=== PATIENT | female | born 1955 | race Caucasian/White ===

== ENCOUNTER 2019-07-04 12:32 | Inpatient (IN) | payer MEDICAID, MEDICARE ==
[~2019-07-04] VITALS: Ht 167.6 cm; Wt 50.1 kg
[2019-07-04 13:54] LABS: BASOPHILS # (AUTO) 0.01 x10^3/uL (0-0.1); BASOPHILS % (AUTO) 0 % (0-1); EOSINOPHILS # (AUTO) 0.03 x10^3/uL (0-0.4); EOSINOPHILS % (AUTO) 0 % (1-7); LYMPHOCYTES # (AUTO) 1.65 x10^3/uL (1-3.4); LYMPHOCYTES % (AUTO) 13 % (22-44); MD NO; MEAN CORPUSCULAR HEMOGLOBIN 32.4 pg (27.0-34.8); MEAN CORPUSCULAR HGB CONC 33.7 g/dL (32.4-35.8); MEAN CORPUSCULAR VOLUME 96.2 fL (80-100); MEAN PLATELET VOLUME 7.7 fL (7.4-10.4); MONOCYTES # (AUTO) 0.63 x10^3/uL (0.2-0.8); MONOCYTES % (AUTO) 5 % (2-9); NEUTROPHILS # (AUTO) 10.29 x10^3/uL (1.8-6.8); NEUTROPHILS % (AUTO) 82 % (42-75); PLATELET COUNT 247 x10^3/uL (130-400); RED BLOOD COUNT 5.29 x10^6/uL (3.82-5.3); RED CELL DISTRIBUTION WIDTH 13.4 % (9.6-15.2)
[2019-07-04 14:02] LABS: ALBUMIN 3.2 g/dL (3.4-5.0); ANION GAP 8 mmol/L (5-15); CALCIUM 8.2 mg/dL (8.5-10.1); CHLORIDE 103 mmol/L (98-107)
--- NOTE | 2019-07-04 14:02 | NUR ---
PATIENT CLEANED FROM BM, LABS COLLECTED. PATIWNT RESTING IN BED.
[2019-07-04 14:10] LABS: ALANINE AMINOTRANSFERASE 34 U/L (12-78); ALKALINE PHOSPHATASE 58 U/L (45-117); BILIRUBIN,TOTAL 1.2 mg/dL (0.2-1.0); TOTAL PROTEIN 7.2 g/dL (6.4-8.2)
--- NOTE | 2019-07-04 14:39 | NUR ---
BREAK RN: LAB CALLED WITH ELEVATED TROPONIN 1.21, NOTIFIED. PT DENIES CHEST PAIN AND STATES "I JUST HAVE HAY FEVER"
[2019-07-04 14:46] LABS: CULTURE INDICATED? YES; MICROSCOPIC INDICATED
[2019-07-04 14:53] LABS: AMPHETAMINE SCREEN, URINE Negative (Negative); BARBITURATE SCREEN, URINE Negative (Negative); BENZODIAZEPINE SCREEN, URINE Negative (Negative); CANNABINOID SCREEN, URINE Positive (Negative); COCAINE SCREEN, URINE Negative (Negative); METHADONE SCREEN, URINE Negative (Negative); OPIATE SCREEN, URINE Negative (Negative)
--- NOTE | 2019-07-04 15:30 | NUR ---
Patient is resting comfortably in bed. Vital Signs within normal limits.
[2019-07-04] MEDS ORDERED: ASPIRIN 325 MG TABLET PO ONE (16:30)
[2019-07-04] MEDS ORDERED: ASPIRIN 81 MG TABLET CHEW ONE (16:41)
--- NOTE | 2019-07-04 16:45 | NUR ---
Patient is resting comfortably in bed. Vital Signs within normal limits.
[2019-07-04] MEDS ORDERED: ASPIRIN 325 MG TABLET ONE (16:46)
--- NOTE | 2019-07-04 16:55 | NUR ---
REPORT CALLED TO OBDULIO ABRAMS. NO QUESTIONS AT THIS TIME.
[2019-07-04 17:52] VITALS: BP 111/75
[2019-07-04] MEDS ORDERED: PLEASE ENTER ALLERGIES MC SCH (18:00)
[2019-07-04] MEDS ORDERED: LABETALOL 5MG/ML, 20ML IVPush PRN (18:00)
[2019-07-04] MEDS ORDERED: ONDANSETRON 2MG/ML, 2ML IVPush PRN (18:00)
[2019-07-04] MEDS ORDERED: DEXTROSE 4 GM TAB.CHEW PO PRN (18:00)
[2019-07-04] MEDS ORDERED: LORazepam 2 MG/ML, 1ML IVPush PRN (18:00)
[2019-07-04] MEDS ORDERED: ENALAPRILAT 1.25 MG/ML, 2ML IVPush PRN (18:00)
[2019-07-04] MEDS ORDERED: GLUCAGON 1 MG IM PRN (18:00)
[2019-07-04] MEDS ORDERED: DEXTROSE 50%, 50ML SYRINGE IVPush PRN (18:00)
[2019-07-04] MEDS ORDERED: CEFTRIAXONE PMX 1GM/50ML 50 ML IV SCH (18:00)
[2019-07-04] MEDS ORDERED: ATOR40TA78 PO (18:18)
[2019-07-04] MEDS ORDERED: IPRA4AER INH (18:18)
[2019-07-04] MEDS ORDERED: DIVA250T PO (18:18)
[2019-07-04] MEDS: ENOXAPARIN 40 MG/0.4 ML SQ SCH (19:10)
[2019-07-04] MEDS: LEVETIRACETAM 500 MG in SODIUM CHLORIDE 0.9% 100 ML IV SCH ×2 (19:10→19:49)
[2019-07-04] MEDS: D5%-0.45NACL+KCL 20MEQ 1,000 ML IV SCH (20:43)
[2019-07-04] MEDS: SODIUM CHLORIDE FLUSH 10ML SYR IVF SCH (21:00)
[2019-07-04 21:59] VITALS: BP 110/70
[2019-07-05 00:33] LABS: TROPONIN I 0.953 ng/mL (0.000-0.045)
[2019-07-05 02:56] VITALS: BP 121/82
[2019-07-05 05:59] LABS: BASOPHILS # (AUTO) 0.02 x10^3/uL (0-0.1); BASOPHILS % (AUTO) 0 % (0-1); EOSINOPHILS # (AUTO) 0.11 x10^3/uL (0-0.4); EOSINOPHILS % (AUTO) 1 % (1-7); LYMPHOCYTES % (AUTO) 26 % (22-44); MD NO; MEAN CORPUSCULAR HEMOGLOBIN 32.8 pg (27.0-34.8); MEAN CORPUSCULAR HGB CONC 33.3 g/dL (32.4-35.8); MEAN CORPUSCULAR VOLUME 98.5 fL (80-100); MEAN PLATELET VOLUME 8.4 fL (7.4-10.4); MONOCYTES # (AUTO) 0.65 x10^3/uL (0.2-0.8); MONOCYTES % (AUTO) 7 % (2-9); NEUTROPHILS # (AUTO) 5.98 x10^3/uL (1.8-6.8); NEUTROPHILS % (AUTO) 65 % (42-75); PLATELET COUNT 257 x10^3/uL (130-400); RED BLOOD COUNT 4.94 x10^6/uL (3.82-5.3); RED CELL DISTRIBUTION WIDTH 13.4 % (9.6-15.2)
[2019-07-05 06:12] LABS: CALCIUM 8.1 mg/dL (8.5-10.1); CHLORIDE 109 mmol/L (98-107)
[2019-07-05 06:24] LABS: ALANINE AMINOTRANSFERASE 29 U/L (12-78); ALBUMIN 2.7 g/dL (3.4-5.0); ALKALINE PHOSPHATASE 51 U/L (45-117); ANION GAP 5 mmol/L (5-15); BILIRUBIN,TOTAL 0.8 mg/dL (0.2-1.0); CHOL/HDL RATIO 2.5; CHOLESTEROL, TOTAL 138 mg/dL (140-239); CREATINE KINASE, TOTAL 917 U/L (26-192); CREATININE 0.46 mg/dL (0.55-1.02); HDL CHOL % 40 % (28-40); HDL CHOLESTEROL (DIRECT) 55 mg/dL (40-60); LDL CHOLESTEROL,CALCULATED 64 mg/dL (54-169); LDL/HDL RATIO 1.2 (0.5-3.0); TOTAL PROTEIN 6.3 g/dL (6.4-8.2); TRIGLYCERIDES 95 mg/dL (50-200); VLDL CHOLESTEROL 19 mg/dL (0-25)
[2019-07-05 07:35] VITALS: BP 119/67
[2019-07-05] MEDS: LEVETIRACETAM 500 MG in SODIUM CHLORIDE 0.9% 100 ML IV SCH ×2 (07:44→20:34)
[2019-07-05] MEDS: SODIUM CHLORIDE FLUSH 10ML SYR IVF SCH ×2 (08:27→20:55)
[2019-07-05] MEDS: D5%-0.45NACL+KCL 20MEQ 1,000 ML IV SCH ×2 (08:27→21:04)
[2019-07-05] MEDS: ASPIRIN 81 MG TABLET EC PO SCH (08:27)
[2019-07-05 14:22] VITALS: BP 111/73
[2019-07-05] MEDS: ENOXAPARIN 40 MG/0.4 ML SQ SCH (18:36)
[2019-07-05] MEDS: ATORVASTATIN 40 MG TABLET PO SCH (20:55)
[2019-07-05 21:18] VITALS: BP 107/65
[2019-07-06 00:27] VITALS: BP 104/64
[2019-07-06] MEDS: ASPIRIN 81 MG TABLET EC PO SCH (05:26)
[2019-07-06 07:40] VITALS: BP 121/67
[2019-07-06 08:10] LABS: ANION GAP 4 mmol/L (5-15); CALCIUM 7.9 mg/dL (8.5-10.1); CHLORIDE 115 mmol/L (98-107); CREATININE 0.45 mg/dL (0.55-1.02)
[2019-07-06] MEDS: D5%-0.45NACL+KCL 20MEQ 1,000 ML IV SCH (08:31)
[2019-07-06] MEDS: LEVETIRACETAM 500 MG in SODIUM CHLORIDE 0.9% 100 ML IV SCH ×2 (08:32→20:34)
[2019-07-06] MEDS: SODIUM CHLORIDE FLUSH 10ML SYR IVF SCH ×2 (08:41→20:35)
[2019-07-06] MEDS ORDERED: REGADENOSON 0.4 MG/5 ML SYRINGE ONE (09:01)
[2019-07-06 13:43] VITALS: BP 120/69
[2019-07-06] MEDS: ENOXAPARIN 40 MG/0.4 ML SQ SCH (18:28)
[2019-07-06] MEDS: ATORVASTATIN 40 MG TABLET PO SCH (20:34)
[2019-07-06 20:44] VITALS: BP 101/55
[2019-07-07 01:15] VITALS: BP 106/69
[2019-07-07] MEDS: D5%-0.45NACL+KCL 20MEQ 1,000 ML IV SCH ×2 (01:36→15:51)
[2019-07-07] MEDS: ASPIRIN 81 MG TABLET EC PO SCH (06:07)
[2019-07-07 08:00] VITALS: BP 105/59
[2019-07-07] MEDS: LEVETIRACETAM 500 MG in SODIUM CHLORIDE 0.9% 100 ML IV SCH (08:34)
[2019-07-07] MEDS: SODIUM CHLORIDE FLUSH 10ML SYR IVF SCH ×2 (08:38→20:07)
[2019-07-07 14:56] VITALS: BP 108/70
[2019-07-07] MEDS: ENOXAPARIN 40 MG/0.4 ML SQ SCH (17:52)
[2019-07-07 18:48] VITALS: BP 101/57
[2019-07-07] MEDS: ATORVASTATIN 40 MG TABLET PO SCH (20:04)
[2019-07-07] MEDS: LEVETIRACETAM 500 MG TABLET PO SCH (20:04)
[2019-07-08] MEDS: D5%-0.45NACL+KCL 20MEQ 1,000 ML IV SCH ×2 (00:59→10:08)
[2019-07-08 03:38] VITALS: BP 128/76
[2019-07-08] MEDS: ASPIRIN 81 MG TABLET EC PO SCH (05:35)
[2019-07-08 06:57] VITALS: BP 117/70
[2019-07-08] MEDS: SODIUM CHLORIDE FLUSH 10ML SYR IVF SCH ×2 (08:09→20:01)
[2019-07-08] MEDS: LEVETIRACETAM 500 MG TABLET PO SCH ×2 (08:10→19:59)
[2019-07-08 13:05] VITALS: BP 114/62
[2019-07-08] MEDS: ENOXAPARIN 40 MG/0.4 ML SQ SCH (18:10)
[2019-07-08 19:32] VITALS: BP 111/67
[2019-07-08] MEDS: ATORVASTATIN 40 MG TABLET PO SCH (19:59)
[2019-07-09 00:15] VITALS: BP 119/62
[2019-07-09] MEDS: ASPIRIN 81 MG TABLET EC PO SCH (05:08)
[2019-07-09 07:16] VITALS: BP 119/79
[2019-07-09] MEDS: SODIUM CHLORIDE FLUSH 10ML SYR IVF SCH (08:59)
[2019-07-09] MEDS: LEVETIRACETAM 500 MG TABLET PO SCH (08:59)
[2019-07-09] MEDS ORDERED: FLU VACC QS2019-20 36MOS UP/PF 0.5 ML IM-VACC ONE (12:00)
[2019-07-09 13:55] VITALS: BP 121/75
[2019-07-09] MEDS ORDERED: LEVE500T53 PO (14:40)
== END 2019-07-09 16:00 | DRG 190 ==
LOC: ED 15:56 → SUATTDRO 16:14 → EDIP 16:21 → 5SO 17:41 → 3N 07-07 17:03
PROVIDERS: ADMIT Internal Medicine; ATTEND Hospitalist
DX: I21.4 Non-ST elevation (NSTEMI) myocardial infarction (principal); G93.41 Metabolic encephalopathy; E87.1 Hypo-osmolality and hyponatremia; E86.0 Dehydration; D75.1 Secondary polycythemia; G40.909 Epilepsy, unspecified, not intractable, without status epilepticus; E16.2 Hypoglycemia, unspecified; F12.90 Cannabis use, unspecified, uncomplicated; N39.0 Urinary tract infection, site not specified; F17.210 Nicotine dependence, cigarettes, uncomplicated; I73.9 Peripheral vascular disease, unspecified; J44.9 Chronic obstructive pulmonary disease, unspecified; Z86.73 Personal history of transient ischemic attack (TIA), and cerebral infarction without residual deficits; Z91.14 Patient's other noncompliance with medication regimen; I69.361 Other paralytic syndrome following cerebral infarction affecting right dominant side
CPT/HCPCS: 36415; 70450; 71045; 78452; 80048; 80053; 80061; 80164; 80307; 81001; 82550; 82962; 83735; 84100; 84443; 84484; 85025; 87086; 90686; 93005; 93017; 93306; 99285; G0378; J0696; J1650; J1953; J2785; 92523-GN; A9502; C9898; J3480